=== PATIENT | female | born 1945 | race Two or more races ===

== ENCOUNTER 2017-11-15 19:17 | Emergency (ER) | payer MEDICARE ==
[~2017-11-15] VITALS: Ht 170.2 cm; Wt 72.6 kg
[2017-11-15 19:32] VITALS: BP 136/84
[2017-11-15] MEDS ORDERED: LIDOCAINE 1% INJ 50 ML MDV IJ ONE (19:46)
[2017-11-15] MEDS ORDERED: ACETAMINOPHEN 325 MG TABLET PO ONE (20:00)
[2017-11-15] MEDS ORDERED: TDAP [DIPH/PERTUSSIS/TET] 0.5 ML VIAL IM ONE ×2 (20:00→20:20)
[2017-11-15] MEDS ORDERED: ACETAMINOPHEN 325 MG TABLET ONE (20:20)
== END 2017-11-15 21:33 | disposition home or self-care (01) ==
LOC: ER 19:19
DX: S61.412A Laceration without foreign body of left hand, initial encounter (principal); F03.90 Unspecified dementia, unspecified severity, without behavioral disturbance, psychotic disturbance, mood disturbance, and anxiety; W26.9XXA Contact with unspecified sharp object(s), initial encounter; Y93.89 Activity, other specified; Y92.89 Other specified places as the place of occurrence of the external cause; Y99.8 Other external cause status
CPT/HCPCS: 73130-TC; 90715; A4606; A6402; J3490; Z7610